=== PATIENT | female | born 1990 | race Caucasian/White ===

== ENCOUNTER 2020-08-17 22:32 | Emergency (ER) | payer OTHER ==
[~2020-08-17] VITALS: Ht 157.5 cm; Wt 55.8 kg
[2020-08-17 22:37] VITALS: BP 109/67
--- NOTE | 2020-08-17 22:55 | NUR ---
PT. TAKEN TO ULTRASOUND VIA WHEELCHAIR.
[2020-08-17 23:03] LABS: BASOPHILS # (AUTO) 0.1 K/uL (0.00-0.22); BASOPHILS % (AUTO) 1.2 % (0.0-2.0); EOSINOPHILS # (AUTO) 0.1 K/uL (0-0.4); EOSINOPHILS % (AUTO) 2.1 % (0.0-4.0); HEMATOCRIT 35.2 % (36-48); HEMOGLOBIN 11.8 g/dL (12.0-16.0); LYMPHOCYTES # (AUTO) 2.6 K/uL (2.5-16.5); LYMPHOCYTES % (AUTO) 41.5 % (20.5-51.1); MEAN CORPUSCULAR HEMOGLOBIN 29 pg (27-31); MEAN CORPUSCULAR HGB CONC 34 g/dL (33-37); MONOCYTES # (AUTO) 0.4 K/uL (0.8-1.0); MONOCYTES % (AUTO) 7.1 % (1.7-9.3); NEUTROPHILS % (AUTO) 48.1 % (42.2-75.2); PLATELET COUNT (AUTO) 326 K/uL (140-450); RED BLOOD CELL COUNT(AUTO) 4.05 MIL/uL (4.20-5.40); RED CELL DISTRIBUTION WIDTH 13.7 % (11.6-13.7); WHITE BLOOD COUNT (AUTO) 6.2 K/uL (4.8-10.8)
--- NOTE | 2020-08-17 23:11 | NUR ---
PT. BACK FROM ULTRASOUND AND IS SEATED IN LOBBY, WAITING FOR A BED.
--- NOTE | 2020-08-17 23:32 | NUR ---
PT. AMBULATED WITH STEADY GAIT TO BED 7 FROM [facility].
--- NOTE | 2020-08-17 23:57 | NUR ---
ERMD at bedside for patient assessment.
--- NOTE | 2020-08-17 23:57 | NUR ---
30 YO/F BIB self w CO vaginal bleeding x1 (small amount), [id number] ago that she noted on her underwear. Patient denies noticing any vaginal bleed after that. Patient reports she is 6 weeks and has an IUD, Patient reports she saw her OBGYN X4 days ago and was normal. Patient denies abdominal pain, n/v/d. Patient denies any trauma to abdomen. Patient breathing even and unlabored. Patient laying in bed, locked in lowest position, HOB elevated, x1 side rail up. NAD noted, will continue to monitor. PMH:Denies NKA
[2020-08-18 01:07] VITALS: BP 109/67
--- NOTE | 2020-08-18 01:07 | NUR ---
Patient discharged with v/s stable. Written and verbal after care instructions given and explained. Patient verbalized understanding. Ambulatory with steady gait. All questions addressed prior to discharge. Advised to follow up with PMD.
[2020-08-18 01:39] LABS: ANION GAP 43.5 (8-16); CARBON DIOXIDE 21.6 mmol/L (21-32); CREATININE 0.5 mg/dL (0.6-1.3); POTASSIUM 3.1 mmol/L (3.5-5.1); TOTAL BILIRUBIN 0.2 mg/dL (0.0-1.0)
[2020-08-18 09:31] LABS: BILIRUBIN,URINE NEGATIVE (NEGATIVE); BLOOD, URINE 2+ (NEGATIVE); COLOR,URINE YELLOW (YELLOW); LEUKOCYTE ESTERASE ,URINE NEGATIVE (NEGATIVE); NITRITE, URINE NEGATIVE (NEGATIVE); UGLUCOSE NEGATIVE (NEGATIVE)
[2020-08-18 09:47] LABS: APPEARANCE,URINE HAZY (CLEAR)
[2020-08-18 09:49] LABS: WBC,URINE 0-5 /HPF (0-5)
== END 2020-08-18 02:24 | disposition home or self-care (01) ==
LOC: MED 22:32
DX: O20.0 Threatened abortion (principal); Z3A.01 Less than 8 weeks gestation of pregnancy
CPT/HCPCS: 36415; 76801; 80053; 81001; 84702; 85025; 86900; 86901; 99284

== ENCOUNTER 2020-08-18 12:22 | Emergency (ER) | payer OTHER ==
[~2020-08-18] VITALS: Ht 160 cm; Wt 57.7 kg
[2020-08-18 12:34] VITALS: BP 99/60
[2020-08-18 13:10] LABS: BASOPHILS # (AUTO) 0.1 K/uL (0.00-0.22); BASOPHILS % (AUTO) 2.3 % (0.0-2.0); EOSINOPHILS # (AUTO) 0.1 K/uL (0-0.4); EOSINOPHILS % (AUTO) 1.8 % (0.0-4.0); HEMATOCRIT 36.2 % (36-48); HEMOGLOBIN 12.1 g/dL (12.0-16.0); LYMPHOCYTES # (AUTO) 1.7 K/uL (2.5-16.5); MEAN CORPUSCULAR HEMOGLOBIN 29 pg (27-31); MEAN CORPUSCULAR HGB CONC 34 g/dL (33-37); MEAN CORPUSCULAR VOLUME 85.7 fL (80-94); MONOCYTES # (AUTO) 0.3 K/uL (0.8-1.0); MONOCYTES % (AUTO) 6.5 % (1.7-9.3); NEUTROPHILS # (AUTO) 3.1 K/uL (1.8-7.7); NEUTROPHILS % (AUTO) 58.4 % (42.2-75.2); PLATELET COUNT (AUTO) 301 K/uL (140-450); RED BLOOD CELL COUNT(AUTO) 4.23 MIL/uL (4.20-5.40); RED CELL DISTRIBUTION WIDTH 13.7 % (11.6-13.7); WHITE BLOOD COUNT (AUTO) 5.3 K/uL (4.8-10.8)
[2020-08-18 13:28] LABS: ANION GAP 15.8 (8-16); CARBON DIOXIDE 23.8 mmol/L (21-32); CREATININE 0.5 mg/dL (0.6-1.3); POTASSIUM 3.6 mmol/L (3.5-5.1)
[2020-08-18 13:36] LABS: TOTAL BILIRUBIN 0.2 mg/dL (0.0-1.0)
[2020-08-18 13:37] LABS: ALBUMIN 3.4 g/dL (3.4-5.0)
[2020-08-18 15:38] VITALS: BP 99/60
== END 2020-08-18 14:39 | disposition home or self-care (01) ==
LOC: MED 12:22
DX: O46.8X1 Other antepartum hemorrhage, first trimester (principal)
CPT/HCPCS: 36415; 80053; 84702; 85025; 99283